=== PATIENT | female | born 1940 | race Caucasian/White ===

== ENCOUNTER 2016-11-24 12:40 | Inpatient (IN) | payer MEDICARE ==
[~2016-11-24] VITALS: Ht 154.9 cm; Wt 72.3 kg
[~2016-11-24 12:40] MED LIST: BIFI4CAP PO; BUSP5TAB3 PO; CHOL100045 PO; CLOB15CR3 TOP; CYAN500 PO; ESTR42.52 VG; FAMO20TA41 PO; LOSA25TA21 PO; NORE-3 PO
[2016-11-24 13:06] VITALS: BP 144/78; PULSE 121; RESP 20; O2SAT 94
--- NOTE | 2016-11-24 14:43 | ED.REPORT ---
HPI-General Illness Date of Service Nov 24, 2016 ED Provider: Dr. Huggins 76 y/o female with a hx of HTN presents to the ED complaining of myalgia, onset today. She also complains of intermittent abdominal pain and 2 episodes of watery diarrhea (without blood) and subjective fever since noon today. Pt denies sore throat, rashes, cough, runny nose, nausea and vomiting. Nursing Notes Stated Complaint: FEVER Chief Complaint: General Complaint Nursing Notes Reviewed: Yes Allergies: Coded Allergies: lidocaine (Verified Allergy, Severe, PALPITAIONS, 11/24/16) nitrofurantoin (Verified Allergy, Intermediate, n/v, 11/24/16) omeprazole (Verified Allergy, Intermediate, heart palpitations, 11/24/16) ciprofloxacin (Verified Allergy, Mild, nausea and diaphoresis, 11/24/16) estradiol (Verified Allergy, Mild, headache, 11/24/16) lisinopril (Verified Allergy, Mild, cough, 11/24/16) Procaine HCl (Verified Allergy, Unknown, 11/24/16) Scheduled Buspirone (Buspirone) 5 Mg Tablet 5 MG PO BID Cholecalciferol (Vitamin D3) (Vitamin D) 1,000 Unit Capsule 1,000 UNIT PO DAILY Lactobacillus Rhamnosus R0011 (Probiotic Digestive Care) 1 Each Capsule 1 EACH PO DAILY Losartan Potassium (Losartan Potassium) 25 Mg Tablet 25 MG PO DAILY Nizatidine (Nizatidine) 150 Mg Capsule 150 MG PO BID General Time Seen by MD: 14:42 Chief Complaint Other (Myalgia) Hx Obtained From: Patient Arrived By: Walk-in Sudden in Onset?: No Onset Occurred: Yesterday Symptom Duration: Since onset Location: : Abdomen Quality: Painful Radiation: : Does not radiate Severity: Current: Mild Severity: Maximum: Mild Recent Healthcare: Recent doctor visit Similar Sx Previous: Yes Past Medical History Past Medical History GERD Arthritis Anxiety Sciatica Reports: Hypertension Reports: Depression Past Surgical History none reported Smoking History Never Smoker Social History Alcohol Use: 1-3 per day Ambulatory Status Independent Review of Systems Full Review of Systems Constitutional: Reports: Fever Ears / Nose / Throat: Denies: Sore throat GI: Reports: Abdominal pain, Diarrhea, Denies: Nausea, Vomiting Musculoskeletal: Reports: Myalgia Skin: Denies Rash Allergy / Immune: Denies: Rhinorrhea Physical Exam Vital Signs Vital Signs Date Time Temp Pulse Resp B/P Pulse Ox O2 Delivery O2 Flow Rate FiO2 11/24/16 17:30 37.8 110 18 140/70 96 Room Air 11/24/16 13:06 39.7 121 20 144/78 94 Initial VS: Reviewed, Vital signs abnormal Head / Eyes: Atraumatic, Normocephalic, PERRL ENT: Mucous membranes moist, Conjunctiva normal, No scleral icterus Neck: Supple, Non-tender, Full range of motion Respiratory: Breath sounds normal, Clear to auscultation, No respiratory distress Back: No CVA tenderness Extremities: Vascular intact, Neuro intact, No swelling, No tenderness Skin: Warm, Dry, No cyanosis Neurologic: Alert, Oriented, Nonfocal Psychiatric: Mood/affect normal, Behavior normal, Normal thought content General/Constitutional: Awake, Alert, Well appearing, Cooperative, Not toxic appearing Cardiovascular: Regular rhythm, Heart sounds NL, No gallop, No murmurs, No rubs Heart Rate / Rhythm: Positive: Tachycardia Abdomen: Atraumatic, Soft, No guarding, No rebound Tenderness/Guarding/Rebound: Positive: Tender LLQ... (Mild) Interpretation & Diagnostics Lab Results Interpretation Result Diagram: 11/24/16 1445 11/24/16 1445 Test 11/24/16 14:20 11/24/16 14:45 11/24/16 15:30 Urine Color Straw (YELLOW) Urine Appearance Hazy (CLEAR,HAZY) Urine pH 5.5 (5.0-8.0) Urine Specific [place] 1.020 (1.003-1.035) Urine Protein Negativemg/dL (NEG,TRACE) Urine Glucose (UA) Negativemg/dL (NEGATIVE) Urine Ketones 15mg/dL (NEGATIVE) Urine Occult Blood Moderate (NEGATIVE) Urine Nitrite Negative (NEGATIVE) Urine Bilirubin Negative (NEGATIVE) Urine Urobilinogen Normalmg/dL (NORMAL) Urine Leukocyte Esterase Small (NEGATIVE) Urine RBC 0-2/hpf (0-2) Urine WBC 11-50/hpf (0-5) Urine Epithelial Cells Occasional/hpf (NONE-MOD) Urine Crystals None seen (NONE SEEN) Urine Bacteria Few/hpf (NONE-FEW) Urine Hyaline Casts None/lpf (NONE) Urine Granular Casts None seen (NONE SEEN) Urine Waxy Casts None seen (NONE SEEN) Urine Red Blood Cell Casts None seen (NONE SEEN) Urine White Blood Cell Casts None seen (NONE SEEN) Urine Mucus None seen (None Seen) Urine Trichomonas None seen (NONE SEEN) Urine Yeast None (NONE SEEN) Urinalysis Comment Transitional epi Urine Culture Reflexed Indicated Hold Urine Received (Received) White Blood Count 9.7th/mm3 (3.8-10.1) Red Blood Count 5.49mil/mm3 (3.90-5.20) Hemoglobin 16.5g/dL (12.0-15.6) Hematocrit 50.5% (35.0-46.0) Mean Corpuscular Volume 92.0fL (81-100) Mean Corpuscular Hemoglobin 30.1pg (27.0-35.0) Mean Corpuscular Hemoglobin Concent 32.7% (32.0-37.0) Red Cell Distribution Width 13.4% (12.3-15.4) Platelet Count 133bil/L (150-400) Neutrophils (%) (Auto) 90.8% (40-74) Lymphocytes (%) (Auto) 3.2% (14-46) Monocytes (%) (Auto) 5.3% (4-12) Eosinophils (%) (Auto) 0% (0-5) Basophils (%) (Auto) 0.3% (0-3) Sodium Level 136mEq/L (134-144) Potassium Level 3.9mEq/L (3.5-5.2) Chloride Level 97mEq/L (97-108) Carbon Dioxide Level 23mmol/L (18-29) Blood Urea Nitrogen 13mg/dL (8-27) Creatinine 0.77mg/dL (0.57-1.00) Estimat Glomerular Filtration Rate 105mL/min (>59) Glucose Level 122mg/dL (60-99) Lactic Acid Level 1.0mmol/L (0.4-2.0) Calcium Level 10.1mg/dL (8.5-10.1) Total Bilirubin 1.5mg/dL (0.0-1.2) Aspartate Amino Transf (AST/SGOT) 16U/L (0-50) Alanine Aminotransferase (ALT/SGPT) 12U/L (0-32) Alkaline Phosphatase 75U/L (25-165) Troponin T < 0.010ug/L (0.0-0.011) Pro-B-Type Natriuretic Peptide 148.6pg/mL (0-738) Total Protein 6.8g/dL (6.4-8.4) Albumin 4.5g/dL (3.4-5.0) Hold Purple Top Tube Received (Received) Hold Blue Top Tube Received (Received) Hold [place] Top Tube Received (Received) ECG Interpretation ECG Interpretation: Sinus tachycardia. Rate 108. Lateral ST depression in V3, V4, V5 and V6 Time: 14:56 Interpreted by: ED physician X-Ray Chest Interpretation Chest Xray Interpretation: IMPRESSION: No acute process. Dictated by: Joey Lagunas M.D. on 11/24/2016 at 15:53 Approved by: Joey Lagunas M.D. on 11/24/2016 at 15:53 View: Portable, AP & lat Interpretation / Wet Read by: Interpret - Radiologist CT Abd / Pelvis Interpretation IMPRESSION: 1. Acute diverticulitis of the descending colon without associated bowel obstruction or abscess. Colonoscopy when the patient's acute symptoms have resolved is recommended to exclude an underlying lesion, if not already recently performed. 2. Fatty infiltration of the wall of the terminal ileum and proximal colon as a nonspecific finding. However, this does raise the suspicion for a chronic inflammatory process such as ulcerative colitis or Crohn's disease. The 3. Moderate-sized hiatal hernia. Dictated by: Usman Raza M.D. on 11/24/2016 at 15:07 Approved by: Usman Raza M.D. on 11/24/2016 at 15:12 Study type: Abdominal CT IV contrast Re-Eval/Medical Decision Med Decision/Clinical Course The patient presents with sudden onset of fever on exam she is left lower quadrant pain. CT confirms diverticulitis. Patient meets sepsis criteria will be admitted to the hospital. She is given Zosyn due to her Cipro allergy. Source of Hx: Old records Time of Eval: 16:34 Re-Evaluation/Progress Note: Pt rechecked. Discussed lab and imaging results. Informed pt of need for admission. Pt understands and agrees with the plan for admission. All questions addressed. Consultation : Referral / Consult Name: Tima Mcdaniel MD Consulted With: Hospitalist Call Returned at: 16:50 Concrete Layer: Will see patient, Agrees with eval, Agrees with plan, Accepts admit Counseled Regarding: Diagnosis, Lab results, Need for admission Discharge & Departure Primary Impression: Diverticulitis Diverticulitis site: unspecified part of intestinal tract Diverticulitis bleeding: without bleeding Diverticulitis complication: without perforation or abscess Qualified Code: K57.92 - Diverticulitis of intestine, part unspecified, without perforation or abscess without bleeding Additional Impressions: UTI (urinary tract infection) Urinary tract infection type: acute cystitis Hematuria presence: without hematuria Qualified Code: N30.00 - Acute cystitis without hematuria Sepsis Sepsis type: sepsis due to unspecified organism Qualified Code: A41.9 - Sepsis, unspecified organism Disposition: ADMITTED TO HOSPITAL Discharge Condition All VS Reviewed: Yes Condition: Stable Referrals: Sabine Phelps PA-C (PCP) Scribe Attestation Portions of this note were transcribed by Dex Juarez and Keke Buchanan. I, , personally performed the history, physical exam and medical decision-making;I reviewed and confirmed the accuracy of the information in the transcribed note. Signed by Augusta Thomas. 11/24/16 17:03 copies to: Sabine Phelps PA-C, Jena M MD Nov 24, 2016 14:43 Dex Juarez Nov 24, 2016 15:02
[2016-11-24] MEDS ORDERED: 0.9% Sodium Chloride 500 ML IV ONE (14:45)
[2016-11-24 15:00] LABS: BASOPHILS % (AUTO) 0.3 % (0-3); EOSINOPHILS % (AUTO) 0 % (0-5); MONOCYTES % (AUTO) 5.3 % (4-12); Mean Corpuscular Hemoglobin 30.1 pg (27.0-35.0); NEUTROPHILS % (AUTO) 90.8 % (40-74); Platelet Count 133 bil/L (150-400)
[2016-11-24 15:27] LABS: TROPONIN T < 0.010 ug/L (0.0-0.011)
[2016-11-24 15:36] LABS: APPEARANCE,URINE HAZY (CLEAR,HAZY); COLOR,URINE STRAW (YELLOW); OCCULT BLOOD,URINE MODERATE (NEGATIVE); PH,URINE 5.5 (5.0-8.0); UROBILINOGEN,URINE NORMAL (NORMAL)
--- NOTE | 2016-11-24 15:54 | DRSVH ---
PROCEDURE: X-RAY CHEST, TWO VIEWS ([id number]) INDICATIONS: FEVER TECHNIQUE: 2 views of the chest were acquired. COMPARISON: [facility], CR, CHEST 2VW, 09/02/2014, 13:07. [facility] [place], CR, CHEST 2VW, 08/14/2011, 10:34. FINDINGS: Surgical changes and devices: None. Lungs and pleura: No pleural effusions or pneumothorax. Lungs are clear. Mediastinum: Mediastinal contours are normal. Heart size is normal. Bones and chest wall: No suspicious bony abnormalities. Soft tissues appear unremarkable. IMPRESSION: No acute process. Dictated by: Joey Lagunas M.D. on 11/24/2016 at 15:53 Approved by: Joey Lagunas M.D. on 11/24/2016 at 15:53
--- NOTE | 2016-11-24 16:14 | DRSVH ---
PROCEDURE: CT ABDOMEN AND PELVIS WITH CONTRAST ([id number]) INDICATIONS: LLQ pain and fever TECHNIQUE: After the administration of oral and intravenous contrast, 5 mm thick sections acquired from the diap hragms to the symphysis. 5 mm thick coronal and sagittal reformats were performed. For radiation do se reduction, the following was used: automated exposure control, adjustment of mA and/or kV accordi ng to patient size. COMPARISON: None. FINDINGS: Image quality: Diagnostic ABDOMEN: Lung bases: Lung bases are clear. Heart size is normal. Solid organs: Liver and spleen are normal in size and enhancement. Gallbladder is not enlarged. Bi liary system is non-dilated. Pancreas enhances normally. No adrenal nodules. Kidneys are normal in size and enhancement, without hydronephrosis. No solid renal lesions are evident. Peritoneum and bowel: There is a small hiatal hernia. Otherwise, the stomach, duodenum and remainder of the small bowel loops are nondilated. There is nonspecific fatty infiltration involving the wall of the terminal ileum, cecum, and ascending colon. Extensive distal colonic diverticulosis is prese nt with moderate focal wall thickening noted along the descending aspect of the distal colon with mod erate inflammatory changes evident within the adjacent mesentery. Small amount of fluid is seen with in the left paracolic gutter. There are no abscesses. There is no free air. Nodes and vessels: No retroperitoneal or mesenteric adenopathy. Aorta and inferior vena cava are no rmal in caliber. There is mild aortic atherosclerosis. Bones: Moderate degenerative changes are noted involving the lumbar spine with mild levoscoliosis. N o suspicious osseous lesions or acute fractures are evident. PELVIS: Genitourinary: Bladder wall thickness is normal. The uterus and ovaries are not enlarged. Miscellaneous: No inguinal hernias or adenopathy. No loculated fluid collections or free air is dino dent. There is a trace amount of free fluid within the pelvis. Bones: No suspicious bony lesions. No acute pelvic fractures are evident. There are mild degenerat darnell changes of the sacroiliac joints. IMPRESSION: 1. Acute diverticulitis of the descending colon without associated bowel obstruction or abscess. Co lonoscopy when the patient's acute symptoms have resolved is recommended to exclude an underlying les ion, if not already recently performed. 2. Fatty infiltration of the wall of the terminal ileum and proximal colon as a nonspecific finding. However, this does raise the suspicion for a chronic inflammatory process such as ulcerative coliti s or Crohn's disease. The 3. Moderate-sized hiatal hernia. Dictated by: Usman Raza M.D. on 11/24/2016 at 15:07 Approved by: Usman Raza M.D. on 11/24/2016 at 15:12
[2016-11-24] MEDS ORDERED: Piperacillin-Tazo 3.375 Gm Inj 3.375 GM in Dextrose 5% Minibag Plus 50 ML IV ONE (16:35)
[2016-11-24] MEDS ORDERED: Polyethylene Glycol (PEG) 17 Gm Powder PO PRN (17:15)
[2016-11-24] MEDS ORDERED: Alum-Mag Hydrox-Simeth 30 mL Suspension PO PRN (17:15)
[2016-11-24] MEDS ORDERED: [UNRECOGNIZED DRUG - CODE] PO (17:19)
[2016-11-24] MEDS ORDERED: LACT1CAP64 PO (17:19)
[2016-11-24] MEDS: 0.9% Sodium Chloride 1,000 ML IV SCH (17:29)
[2016-11-24 17:30] VITALS: BP 140/70; PULSE 110; RESP 18; O2SAT 96
--- NOTE | 2016-11-24 17:34 | PCM.HPMED ---
Subjective Date of Service Nov 24, 2016 Primary Provider: Admitting Physician: Primary Care Physician: Sabine Phelps PA-C Attending Physician: Admit Status: From the Emergency Department, Full Admit, Admit to Blue Team Chief Complaint: Fever and chills/one day Diarrhea/one day History of Present Illness: Jing is a pleasant 76-year-old lady with no significant past medical history who presented to emergency room due to sudden onset fever, chills, watery diarrhea of one day. She states she started to have episodes of watery diarrhea this morning. She also noted that she is having malaise, chills and fever which prompted ED visit. She has nausea but no vomiting. She also noted she has LLQ dull aching abdominal pain after she came to the emergency room. Last colonoscopy was 5 years ago and was told to have diverticuli. ED course: Febrile temp 39.7, HR 121, BP 144/78, hemoglobin 16.5, WBC 9.7, platelets 133, urinalysis with pyuria CT abdomen shows Acute diverticulitis of the descending colon without associated bowel obstruction or abscess IV fluids started, Zosyn started and admission requested Review of Systems: A comprehensive review of systems performed, pertinent positives and negatives included in history of present illness Allergies Coded Allergies: lidocaine (Verified Allergy, Severe, PALPITAIONS, 11/24/16) nitrofurantoin (Verified Allergy, Intermediate, n/v, 11/24/16) omeprazole (Verified Allergy, Intermediate, heart palpitations, 11/24/16) ciprofloxacin (Verified Allergy, Mild, nausea and diaphoresis, 11/24/16) estradiol (Verified Allergy, Mild, headache, 11/24/16) lisinopril (Verified Allergy, Mild, cough, 11/24/16) Procaine HCl (Verified Allergy, Unknown, 11/24/16) Home Medications Buspirone (Buspirone) 5 Mg Tablet 5 MG PO BID Famotidine (Pepcid AC) 20 Mg Tablet 20 MG PO BID Losartan 25 mg daily PMH GERD Arthritis Sciatica Hypertension Anxiety/Depression Surgical History None Family History Reviewed and unremarkable Social History Hx Alcohol Use: Yes (14 PER WEEK) Hx Substance Use: No Smoking Status: Never Smoker Exam Vital Signs Vital Sign - Last Date Time Temp Pulse Resp B/P Pulse Ox O2 Delivery O2 Flow Rate FiO2 11/24/16 13:06 39.7 121 20 144/78 94 Exam Gen. patient is lying comfortably in hospital bed, acutely sick looking HEENT: Head is normocephalic atraumatic, Pupils equal and reactive, extraocular movements intact, Lungs clear to auscultation bilaterally Heart regular rate and rhythm without murmurs gallops or rubs Abdomen LLQ direct and rebound tenderness. Active bowel sounds Extremities pulses are present dorsalis pedis posterior tibialis and radial. tSkin is warm and dry there are no rashes, Psych alert and oriented to person place and time Neuro cranial nerves II through XII are grossly intact Lymph: There is no lymphadenopathy appreciated in the cervical supra infraclavicular regions : no wiseman Lab and Diagnostics Result Diagram: 11/24/16 1445 11/24/16 1445 X-Rays, CTs and MRIs PROCEDURE: CT ABDOMEN AND PELVIS WITH CONTRAST ([id number]) INDICATIONS: LLQ pain and fever IMPRESSION: 1. Acute diverticulitis of the descending colon without associated bowel obstruction or abscess. Colonoscopy when the patient's acute symptoms have resolved is recommended to exclude an underlying lesion, if not already recently performed. 2. Fatty infiltration of the wall of the terminal ileum and proximal colon as a nonspecific finding. However, this does raise the suspicion for a chronic inflammatory process such as ulcerative colitis or Crohn's disease. The 3. Moderate-sized hiatal hernia. Dictated by: Usman Raza M.D. on 11/24/2016 at 15:07 Assessment & Plan Jing is a pleasant 76-year-old lady with no significant past medical history who presented to emergency room due to sudden onset fever, chills, watery diarrhea of one # Acute sepsis ,poa -due to diverticulitis and UTI -temp 39.7, HR 121 -Blood and urine culture pending -NS bolus then 100ml/h -antibiotic Zosyn started in ED due to ciprofloxacin allergy, continue with that # Acute diverticulitis,poa -CT abdomen consistent with diverticulitis -npo tonight, will start clears in the morning -Management as above -Will need colonoscopy in the next few month #Acute UTI,poa -Urinalysis with pyuria, urine culture sent -Continue Zosyn #Anxiety/depression -Continue home medication # Hypertension -BP okay, hold losartan for now due to sepsis ppx -lovenox Patient admitted under inpatient status with expected length of stay > 2 midnights for severity of present symptoms, complexities of treatment plan and risk for adverse events full code , verified with patient copies to: Sabine Phelps PA-C, Melaku MD Nov 24, 2016 17:34
[2016-11-24] MEDS ORDERED: 0.9% Sodium Chloride 1,000 ML IV ONE (17:40)
[2016-11-24 18:07] VITALS: PULSE 99
[2016-11-24 18:12] VITALS: BP 125/72; PULSE 98; RESP 20; O2SAT 94
[2016-11-24] MEDS: BusPIRone 15 mg Dividose Tablet PO SCH (20:00)
[2016-11-24 20:20] VITALS: BP 123/75; PULSE 96; RESP 22; O2SAT 94
[2016-11-24 20:51] VITALS: PULSE 84
[2016-11-25] VITALS (8 sets, daily range): BP systolic 135–149; BP diastolic 73–77; PULSE 73–92; RESP 18–24; O2SAT 92–95
[2016-11-25] MEDS: Piperacillin-Tazo 3.375 Gm Inj 3.375 GM in Dextrose 5% Minibag Plus 50 ML IV SCH ×3 (00:12→17:29)
[2016-11-25] MEDS: Ondansetron 2 mg/mL 2 mL Inj IVPUSH PRN ×2 (00:26→22:18)
[2016-11-25] MEDS: 0.9% Sodium Chloride 1,000 ML IV SCH ×3 (04:35→14:35)
[2016-11-25 06:04] LABS: BASOPHILS % (AUTO) 0.3 % (0-3); EOSINOPHILS % (AUTO) 0.1 % (0-5); MONOCYTES % (AUTO) 4.3 % (4-12); Mean Corpuscular Hemoglobin 30.6 pg (27.0-35.0); Mean Corpuscular Volume 93.2 fL (81-100); NEUTROPHILS % (AUTO) 87.8 % (40-74); Platelet Count 115 bil/L (150-400)
[2016-11-25 06:32] LABS: Magnesium 1.8 mg/dL (1.6-2.6)
[2016-11-25] MEDS: BusPIRone 15 mg Dividose Tablet PO SCH ×2 (10:26→22:18)
--- NOTE | 2016-11-25 16:10 | PCM.PNMED ---
Subjective Date of Service Nov 25, 2016 Subjective Tolerating clear liquids fairly well. Still some LLQ abd pain. Exam Vital Signs Vital Sign - Last Date Time Temp Pulse Resp B/P Pulse Ox O2 Delivery O2 Flow Rate FiO2 11/25/16 15:25 37.3 82 20 146/76 92 Room Air Intake and Output 11/24/16 11/24/16 11/25/16 Cumulative From/Thru 15:00 23:00 07:00 11/24/16 13:06 - 11/25/16 06:33 Intake Total 1970 ml 1970 ml Output Total 1150 ml 1150 ml Balance 820 ml 820 ml Intake Oral 0 ml 0 ml IV Total 1970 ml 1970 ml Output Urine Total 1150 ml 1150 ml # Voids 3 3 # Bowel Movements 0 0 Exam General: Alert and oriented, no acute distress Heart: Regular Lungs: Clear Abdomen: Soft, BT active, mild pain to LLQ percussion, more pain to mod palp Extremities: No pedal edema IVs and Medications Medications Reviewed: Medications were reviewed in detail Lab and Diagnostics Result Diagram: 11/25/16 0555 11/25/16 0555 X-Rays, CTs and MRIs PROCEDURE: CT ABDOMEN AND PELVIS WITH CONTRAST ([id number]) INDICATIONS: LLQ pain and fever IMPRESSION: 1. Acute diverticulitis of the descending colon without associated bowel obstruction or abscess. Colonoscopy when the patient's acute symptoms have resolved is recommended to exclude an underlying lesion, if not already recently performed. 2. Fatty infiltration of the wall of the terminal ileum and proximal colon as a nonspecific finding. However, this does raise the suspicion for a chronic inflammatory process such as ulcerative colitis or Crohn's disease. The 3. Moderate-sized hiatal hernia. Dictated by: Usman Raza M.D. on 11/24/2016 at 15:07 Assessment & Plan Jing is a pleasant 76-year-old lady with no significant past medical history who presented to emergency room due to sudden onset fever, chills, watery diarrhea of one # Acute sepsis ,poa - with Gram negative bacteremia (both sets with GNB), probably due to diverticulitis (seen on CT) -initally temp 39.7, HR 121 - morning after admit afebrile and HR 88 -NS bolus then 100ml/h -initially felt due to diverticulitis and UTI as UA has 11-50 WBC but urine culture NGSF -antibiotic Zosyn started in ED due to ciprofloxacin allergy, continued # Acute diverticulitis,poa -CT abdomen consistent with diverticulitis -npo tonight, started clear liquids today -Management as above -Will need colonoscopy in the next few month #Acute pyuria, possible UTI,poa - As above #Anxiety/depression -Continue home medication # Hypertension - losartan held initially due to sepsis, systolic blood pressure now 140s, will resume in the morning ppx -lovenox Patient admitted under inpatient status with expected length of stay > 2 midnights for severity of present symptoms, complexities of treatment plan and risk for adverse events full code , verified with patient VTE Mechanical Devices: Intermittant Pneumatic CD Irena Mao MD Nov 25, 2016 16:10
[2016-11-26] MEDS: Piperacillin-Tazo 3.375 Gm Inj 3.375 GM in Dextrose 5% Minibag Plus 50 ML IV SCH ×2 (01:47→08:47)
[2016-11-26 05:50] VITALS: BP 131/69; PULSE 66; RESP 18; O2SAT 94
[2016-11-26] MEDS: BusPIRone 15 mg Dividose Tablet PO SCH (08:46)
[2016-11-26] MEDS: 0.9% Sodium Chloride 1,000 ML IV SCH (11:04)
[2016-11-26] MEDS ORDERED: AMOX-366 PO (14:32)
--- NOTE | 2016-11-26 14:36 | PCM.DIMED ---
Discharge Instructions Date of Service Nov 26, 2016 Dates of Hospitalization Nov 24, 2016 at 17:32 Discharge Diagnosis Discharge Diagnosis Sepsis with gram-negative bacteremia Acute diverticulitis Acute pyuria secondary to UTI Anxiety/depression Hypertension Diet Heart Healthy Activity No restrictions Call your provider Fever or Chills, Shortness of breath, Vomitting, Excessive diarrhea Patient Instructions Please continue to eat and drink regularly to stay hydrated. Mid-level Provider (F9): Sabine Phelps PA-C Follow-up with Mid-level in: 1 week (if an appointment has not been made please call to schedule an appointment) Paige Woods DO Nov 26, 2016 14:36
--- NOTE | 2016-11-26 14:42 | PCM.DC.MED ---
Discharge Summary Date of Service Nov 26, 2016 Dates of Hospitalization Date of Hospital Admission Nov 24, 2016 at 17:32 Date of Discharge: Nov 26, 2016 Providers: Admitting Physician: Tima Mcdaniel MD Primary Care Physician: Sabine Phelps PA-C Attending Physician: Tima Mcdaniel MD Diagnosis at Time of Discharge Diagnosis at Time of Discharge Sepsis with gram-negative bacteremia Acute diverticulitis Acute pyuria secondary to UTI Anxiety/depression Hypertension Procedures XRay, CTs & MRIs PROCEDURE: CT ABDOMEN AND PELVIS WITH CONTRAST ([id number]) INDICATIONS: LLQ pain and fever IMPRESSION: 1. Acute diverticulitis of the descending colon without associated bowel obstruction or abscess. Colonoscopy when the patient's acute symptoms have resolved is recommended to exclude an underlying lesion, if not already recently performed. 2. Fatty infiltration of the wall of the terminal ileum and proximal colon as a nonspecific finding. However, this does raise the suspicion for a chronic inflammatory process such as ulcerative colitis or Crohn's disease. The 3. Moderate-sized hiatal hernia. Dictated by: Usman Raza M.D. on 11/24/2016 at 15:07 Brief History Jing is a pleasant 76-year-old lady with no significant past medical history who presented to emergency room due to sudden onset fever, chills, watery diarrhea of one day. She states she started to have episodes of watery diarrhea this morning. She also noted that she is having malaise, chills and fever which prompted ED visit. She has nausea but no vomiting. She also noted she has LLQ dull aching abdominal pain after she came to the emergency room. Last colonoscopy was 5 years ago and was told to have diverticuli. ED course: Febrile temp 39.7, HR 121, BP 144/78, hemoglobin 16.5, WBC 9.7, platelets 133, urinalysis with pyuria CT abdomen shows Acute diverticulitis of the descending colon without associated bowel obstruction or abscess IV fluids started, Zosyn started and admission requested Hospital Course Jing is a pleasant 76-year-old lady with no significant past medical history who presented to emergency room due to sudden onset fever, chills, watery diarrhea of one Patient was admitted for sepsis secondary to gram-negative bacteremia from acute diverticulitis and UTI. The patient currently responded well to antibiotic treatment with Zosyn. The patient's labs have all returned to normal and she has remained afebrile for the last 48 hours. The patient will be going home with a 10 day course of Augmentin patient did have positive blood cultures. The patient should follow-up within 1 week with her primary care provider. The patient is currently tolerating a soft diet with no nausea vomiting or diarrhea. Acute sepsis ,poa - with Gram negative bacteremia (both sets with GNB), probably due to diverticulitis (seen on CT) -initally temp 39.7, HR 121 - morning after admit afebrile and HR 88 -NS bolus then 100ml/h -initially felt due to diverticulitis and UTI as UA has 11-50 WBC but urine culture NGSF -antibiotic Zosyn started in ED due to ciprofloxacin allergy, continued Acute diverticulitis,poa -CT abdomen consistent with diverticulitis -npo tonight, started clear liquids today -Management as above -Will need colonoscopy in the next few month Acute pyuria, possible UTI,poa - As above Anxiety/depression -Continue home medication Hypertension - losartan held initially due to sepsis, systolic blood pressure now 140s, will resume in the morning ppx -lovenox Exam Vital Signs (Last) Date Time Temp Pulse Resp B/P Pulse Ox O2 Delivery O2 Flow Rate FiO2 11/26/16 05:50 36.6 66 18 131/69 94 Room Air Exam Physical Exam: GEN: Patient was awake, alert, responding appropriately to questions HEENT: Pupils equal round and reactive to light, extraocular eye muscles intact , Neck soft supple, trachea midline, nomocephalic/atraumatic CV: +S1/S2, regular rate and rhythm, no murmurs auscultated Respiratory: CTAB, no wheezes, rales, rhonchi GI: +bowel sounds x4, soft, compressible, mild left lower quadrant tenderness to palpation EXT: no clubbing, cyanosis, edema Neuro: Cranial nerves II-XII grossly intact Psych: mood and affect were appropriate Test 11/24/16 14:20 11/24/16 14:45 11/24/16 15:30 11/25/16 05:55 Urine Color Straw (YELLOW) Urine Appearance Hazy (CLEAR,HAZY) Urine pH 5.5 (5.0-8.0) Urine Specific [place] 1.020 (1.003-1.035) Urine Protein Negativemg/dL (NEG,TRACE) Urine Glucose (UA) Negativemg/dL (NEGATIVE) Urine Ketones 15mg/dL (NEGATIVE) Urine Occult Blood Moderate (NEGATIVE) Urine Nitrite Negative (NEGATIVE) Urine Bilirubin Negative (NEGATIVE) Urine Urobilinogen Normalmg/dL (NORMAL) Urine Leukocyte Esterase Small (NEGATIVE) Urine RBC 0-2/hpf (0-2) Urine WBC 11-50/hpf (0-5) Urine Epithelial Cells Occasional/hpf (NONE-MOD) Urine Crystals None seen (NONE SEEN) Urine Bacteria Few/hpf (NONE-FEW) Urine Hyaline Casts None/lpf (NONE) Urine Granular Casts None seen (NONE SEEN) Urine Waxy Casts None seen (NONE SEEN) Urine Red Blood Cell Casts None seen (NONE SEEN) Urine White Blood Cell Casts None seen (NONE SEEN) Urine Mucus None seen (None Seen) Urine Trichomonas None seen (NONE SEEN) Urine Yeast None (NONE SEEN) Urinalysis Comment Transitional epi Urine Culture Reflexed Indicated Hold Urine Received (Received) Lactic Acid Level 1.0mmol/L (0.4-2.0) Troponin T < 0.010ug/L (0.0-0.011) Pro-B-Type Natriuretic Peptide 148.6pg/mL (0-738) Hold Purple Top Tube Received (Received) Hold Blue Top Tube Received (Received) Hold [place] Top Tube Received (Received) White Blood Count 7.2th/mm3 (3.8-10.1) Red Blood Count 4.74mil/mm3 (3.90-5.20) Hemoglobin 14.5g/dL (12.0-15.6) Hematocrit 44.2% (35.0-46.0) Mean Corpuscular Volume 93.2fL (81-100) Mean Corpuscular Hemoglobin 30.6pg (27.0-35.0) Mean Corpuscular Hemoglobin Concent 32.8% (32.0-37.0) Red Cell Distribution Width 13.5% (12.3-15.4) Platelet Count 115bil/L (150-400) Neutrophils (%) (Auto) 87.8% (40-74) Lymphocytes (%) (Auto) 7.4% (14-46) Monocytes (%) (Auto) 4.3% (4-12) Eosinophils (%) (Auto) 0.1% (0-5) Basophils (%) (Auto) 0.3% (0-3) Sodium Level 141mEq/L (134-144) Potassium Level 3.9mEq/L (3.5-5.2) Chloride Level 104mEq/L (97-108) Carbon Dioxide Level 23mmol/L (18-29) Blood Urea Nitrogen 10mg/dL (8-27) Creatinine 0.75mg/dL (0.57-1.00) Estimat Glomerular Filtration Rate 108mL/min (>59) Glucose Level 117mg/dL (60-99) Calcium Level 8.5mg/dL (8.5-10.1) Magnesium Level 1.8mg/dL (1.6-2.6) Total Bilirubin 1.2mg/dL (0.0-1.2) Aspartate Amino Transf (AST/SGOT) 13U/L (0-50) Alanine Aminotransferase (ALT/SGPT) 9U/L (0-32) Alkaline Phosphatase 57U/L (25-165) Total Protein 5.3g/dL (6.4-8.4) Albumin 3.6g/dL (3.4-5.0) Discharge Medications Discharge Medications Amoxicillin/Clav K 875-125 mg (Augmentin 875-125 mg) 1 Each Tablet 1 TABLET PO BID Prescribed by: TRISTA GOODWIN DO Buspirone (Buspirone) 5 Mg Tablet 5 MG PO BID (Reported) Cholecalciferol (Vitamin D3) (Vitamin D) 1,000 Unit Capsule 1,000 UNIT PO DAILY (Reported) Lactobacillus Rhamnosus R0011 (Probiotic Digestive Care) 1 Each Capsule 1 EACH PO DAILY (Reported) Losartan Potassium (Losartan Potassium) 25 Mg Tablet 25 MG PO DAILY (Reported) Nizatidine (Nizatidine) 150 Mg Capsule 150 MG PO BID (Reported) Followup Plan Discharge Diet: Heart Healthy Discharge Activity: No restrictions Patient Instructions Please continue to eat and drink regularly to stay hydrated. Mid-level Provider: Sabine Phelps PA-C Follow-up with Mid-level in: 1 week (if an appointment has not been made please call to schedule an appointment) copies to: Sabine Phelps PA-C, Precious L DO Nov 26, 2016 14:42
[2016-11-26 15:01] VITALS: BP 149/78; PULSE 82; RESP 16; O2SAT 95
== END 2016-11-26 15:43 | disposition home or self-care (01) | DRG 872 ==
LOC: SED 12:40 → OSC 17:32
PROVIDERS: ADMIT Internal Medicine; ATTEND Internal Medicine
DX: A41.51 Sepsis due to Escherichia coli [E. coli] (principal); K57.32 Diverticulitis of large intestine without perforation or abscess without bleeding; N39.0 Urinary tract infection, site not specified; A41.89 Other specified sepsis; K21.9 Gastro-esophageal reflux disease without esophagitis; I10 Essential (primary) hypertension; F32.9 Major depressive disorder, single episode, unspecified; F41.9 Anxiety disorder, unspecified; Z88.1 Allergy status to other antibiotic agents

== ENCOUNTER 2016-12-03 10:30 | Emergency (ER) | payer MEDICARE ==
[~2016-12-03] VITALS: Ht 154.9 cm; Wt 72.3 kg
[~2016-12-03 10:30] MED LIST changes: +AMOX-366 PO; +LACT1CAP64 PO; +[UNRECOGNIZED DRUG - CODE] PO
[2016-12-03 10:46] VITALS: BP 154/94; PULSE 88; RESP 20; O2SAT 97
--- NOTE | 2016-12-03 11:30 | ED.REPORT ---
HPI-Abd Pain F 40 and Over Date of Service December 03, 2016 ED Provider: Celeste Sutherland History of Present Illness: feeling clammy and diarrhea continues. abd pain started today comes and goes pain is very mild. Still on antibiotic, augmentin. Mikael is primary care. saw her on . cough present for a week, started in the hospital. Nursing Notes Stated Complaint: DIVERTICULITIS Chief Complaint: Female Abdominal Pain Nursing Notes Reviewed: Yes Allergies: Coded Allergies: lidocaine (Verified Allergy, Severe, PALPITAIONS, 12/03/16) nitrofurantoin (Verified Allergy, Intermediate, n/v, 12/03/16) omeprazole (Verified Allergy, Intermediate, heart palpitations, 12/03/16) ciprofloxacin (Verified Allergy, Mild, nausea and diaphoresis, 12/03/16) estradiol (Verified Allergy, Mild, headache, 12/03/16) lisinopril (Verified Allergy, Mild, cough, 12/03/16) Procaine HCl (Verified Allergy, Unknown, 12/03/16) Scheduled Amoxicillin/Clav K 875-125 mg (Augmentin 875-125 mg) 1 Each Tablet 1 TABLET PO BID Amoxicillin/Clav K 875-125 mg (Augmentin 875-125 mg) 1 Each Tablet 1 TABLET PO BID Buspirone (Buspirone) 5 Mg Tablet 5 MG PO BID Cholecalciferol (Vitamin D3) (Vitamin D) 1,000 Unit Capsule 1,000 UNIT PO DAILY Lactobacillus Rhamnosus R0011 (Probiotic Digestive Care) 1 Each Capsule 1 EACH PO DAILY Losartan Potassium (Losartan Potassium) 25 Mg Tablet 25 MG PO DAILY Nizatidine (Nizatidine) 150 Mg Capsule 150 MG PO BID General Time Seen by MD: 11:27 Chief Complaint Other (cramping feeling weak) Hx Obtained From: Patient Sudden in Onset?: No Past Medical History Past Medical History GERD Arthritis Anxiety Sciatica divertilitis Reports: Hypertension Reports: Depression Past Surgical History none reported Smoking History Never Smoker Social History Alcohol Use: 1-3 per day Drug Use: Denies drug use Other Social History: Occupation lives with 1 story house 12/03/2016 Ambulatory Status Independent Review of Systems Basic Review of Systems Eyes: Vision NL, No discharge Skin: No bruising, No rash, No itch Psychiatric: Normal thought content Physical Exam Vital Signs Vital Signs (First) Date Time Temp Pulse Resp B/P Pulse Ox O2 Delivery O2 Flow Rate FiO2 12/03/16 10:46 36.7 88 20 154/94 97 12/03/16 13:05 Room Air Initial VS: Reviewed, Vital signs normal Head / Eyes: Atraumatic, Normocephalic, PERRL ENT: Mucous membranes moist, Conjunctiva normal, No scleral icterus Neck: Supple, Non-tender, Full range of motion Lymphatic: No lymphadenopathy Extremities: Vascular intact, Neuro intact, No swelling, No tenderness Skin: Warm, Dry, No cyanosis Neurologic: Alert, Oriented, Nonfocal Psychiatric: Mood/affect normal, Behavior normal, Normal thought content General/Constitutional: Awake, Alert, No acute distress, Well appearing, Well developed, Well hydrated, Well nourished, Cooperative, Not toxic appearing Respiratory / Chest: Atraumatic, Breath sounds NL, Breath sounds = bilat, No respiratory distress, No rales, No rhonchi, No wheezing, No retractions, No stridor, No chest tenderness, No chest wall deformity, No crepitus Cardiovascular: Heart rate NL, Regular rhythm, Heart sounds NL, No gallop, No murmurs, No rubs, Cap refill not delayed, Peripheral circulation NL Abdomen: Atraumatic, Soft, Non-tender, McBurney's non-tender, No guarding, No rebound, BS normoactive, No distention Back: Atraumatic, Inspection NL, Full range of motion Interpretation & Diagnostics Lab Results Interpretation Result Diagram: 12/03/16 1145 12/03/16 1145 Test 12/03/16 11:45 12/03/16 14:53 White Blood Count 5.4th/mm3 (3.8-10.1) Red Blood Count 5.26mil/mm3 (3.90-5.20) Hemoglobin 15.8g/dL (12.0-15.6) Hematocrit 47.5% (35.0-46.0) Mean Corpuscular Volume 90.3fL (81-100) Mean Corpuscular Hemoglobin 30.0pg (27.0-35.0) Mean Corpuscular Hemoglobin Concent 33.3% (32.0-37.0) Red Cell Distribution Width 13.1% (12.3-15.4) Platelet Count 189bil/L (150-400) Neutrophils (%) (Auto) 68.6% (40-74) Lymphocytes (%) (Auto) 18.0% (14-46) Monocytes (%) (Auto) 11.8% (4-12) Eosinophils (%) (Auto) 0.7% (0-5) Basophils (%) (Auto) 0.7% (0-3) Sodium Level 139mEq/L (134-144) Potassium Level 3.4mEq/L (3.5-5.2) Chloride Level 100mEq/L (97-108) Carbon Dioxide Level 24mmol/L (18-29) Blood Urea Nitrogen 5mg/dL (8-27) Creatinine 0.59mg/dL (0.57-1.00) Estimat Glomerular Filtration Rate 143mL/min (>59) Glucose Level 110mg/dL (60-99) Lactic Acid Level 0.9mmol/L (0.4-2.0) Calcium Level 9.0mg/dL (8.5-10.1) Magnesium Level 2.1mg/dL (1.6-2.6) Total Bilirubin 0.6mg/dL (0.0-1.2) Aspartate Amino Transf (AST/SGOT) 24U/L (0-50) Alanine Aminotransferase (ALT/SGPT) 24U/L (0-32) Alkaline Phosphatase 61U/L (25-165) Troponin T 0.010ug/L (0.0-0.011) Total Protein 6.9g/dL (6.4-8.4) Albumin 3.7g/dL (3.4-5.0) Urine Color Yellow (YELLOW) Urine Appearance Clear (CLEAR,HAZY) Urine pH 6.0 (5.0-8.0) Urine Specific [place] 1.005 (1.003-1.035) Urine Protein Negativemg/dL (NEG,TRACE) Urine Glucose (UA) Negativemg/dL (NEGATIVE) Urine Ketones 15mg/dL (NEGATIVE) Urine Occult Blood Trace (NEGATIVE) Urine Nitrite Negative (NEGATIVE) Urine Bilirubin Negative (NEGATIVE) Urine Urobilinogen Normalmg/dL (NORMAL) Urine Leukocyte Esterase Negative (NEGATIVE) Urine RBC 0-2/hpf (0-2) Urine WBC 0-5/hpf (0-5) Urine Epithelial Cells Few/hpf (NONE-MOD) Urine Crystals None seen (NONE SEEN) Urine Bacteria None/hpf (NONE-FEW) Urine Hyaline Casts None/lpf (NONE) Urine Granular Casts None seen (NONE SEEN) Urine Waxy Casts None seen (NONE SEEN) Urine Red Blood Cell Casts None seen (NONE SEEN) Urine White Blood Cell Casts None seen (NONE SEEN) Urine Mucus None seen (None Seen) Urine Trichomonas None seen (NONE SEEN) Urine Yeast None (NONE SEEN) Urinalysis Comment None Urine Culture Reflexed Not indicated Lab Results Interpretation: urine is normal CT Abd / Pelvis Interpretation PROCEDURE: CT ABDOMEN AND PELVIS WITH CONTRAST ([id number]) INDICATIONS: abd pain ?abscess, diverticulitis TECHNIQUE: After the administration of intravenous contrast, 5 mm thick sections acquired from the diaphragm to the symphysis. 5 mm coronal and sagittal reformats were acquired. For radiation dose reduction, the following was used: automated exposure control, adjustment of mA and/or kV according to patient size. COMPARISON: [facility], CT, CT ABD PELVIS W CON, 11/24/2016, 15:57. FINDINGS: Image quality: Excellent. ABDOMEN: Lung bases: Mild patchy opacity within the right middle lobe. Heart size is normal. Solid organs: Liver and spleen are normal in size and enhancement. Gallbladder is within normal limits. Biliary system is non dilated. Pancreas enhances normally. No adrenal nodules. Kidneys demonstrate normal size and enhancement, without hydronephrosis. Peritoneum and bowel: No change in small hiatal hernia. Stomach and small bowel are within normal limits. Appendix is normal. Colon is nondistended. Diverticulosis of the descending and sigmoid colon. Mild thickening of the distal descending colon and mild pericolonic fat stranding. Mild thickening of the mid/distal sigmoid colon with mild pericolonic fat stranding. No pericolonic abscess. No free fluid or air. Nodes and vessels: No retroperitoneal or mesenteric adenopathy by size criteria. Aorta and inferior vena cava are normal in size. Miscellaneous: No ventral hernias. PELVIS: Genitourinary: Bladder wall thickness is normal. Miscellaneous: No inguinal hernias or adenopathy. Bones: No suspicious bony lesions. No vertebral body compression fractures. IMPRESSION: 1. Mild right middle lobe pneumonia. 2. Mild diverticulitis of the distal and mid sigmoid colon. 3. Normal appendix. 4. Small hiatal hernia. Re-Eval/Medical Decision Med Decision/Clinical Course 76 year old female presents for evualation after discharge 1 week ago from the hospital for diverticulitis. Paitnet with vague symptoms. labs are normal, CT is normal, urine is normal. Discussed with Dean Ferguson at to dispostion, re high risk with recent hospilations and bacteremia Discharge & Departure Primary Impression: Diverticulitis Diverticulitis site: large intestine Diverticulitis bleeding: without bleeding Diverticulitis complication: without perforation or abscess Qualified Code: K57.32 - Diverticulitis of large intestine without perforation or abscess without bleeding Additional Impression: Pneumonia Pneumonia type: due to unspecified organism Laterality: right Lung location : middle lobe of lung Qualified Code: J18.1 - Lobar pneumonia, unspecified organism Disposition: Home Referrals: Sabine Phelps PA-C (PCP) EDSupervising Provider for APC: Obed Jones MD Attending Statement This is a patient initially seen by the mid-level provider, but I personally interviewed and examined the patient, reviewed the laboratory, vitals, chart, and CT imaging obtained today. The patient was recently admitted with diverticulitis treated couple days of IV antibiottics and discharged on Augmentin. She has had diarrhea with the Augmentin, I have been doing okay but developed increasing fatigue the past few days, she also has a mild cough, she has not had any fevers or chills, and today had a little bit of abdominal pain. Overall abdominal pain is really not been part of her there are picture, she initially presented with fevers and chills or than pain and she is not on a pain medications. She clinically appears well, she is in no distress, vitals are normal she is not febrile. Her blood work was normal. CT with oral contrast was obtained to evaluate for the possibility of a diverticular abscess or microperforation-in the does reveal mild persistent diverticulitis, no inter-dish abdominal pathology is otherwise evident. The CT is suggestive of a small consolidation in the lung as well, the patient does have a mild cough. Augmentin should be adequate treatment as well. He did not have any diarrhea in the department for chest stool sample could be obtained as was ordered by the mid-level provider, however the patient's on Augmentin and diarrhea is to be expected. I reviewed options with the patient. The patient on reevaluation does not wish to be readmitted, nor did she appear toxic or have any red flags on her imaging or laboratory studies, it is still slightly concerning that there is persistent inflammation after a week of antibiotics, but it is not progressed or worsened and the patient's tolerating it well. I have gone ahead and written to explain the antibiotics slightly, and I recommend she continue her probiotics as well. Discussed the possibility of changing Antibiotics-however that would typically include a fluoroquinolone and metronidazole, patient's had problems with fluoroquinolones. Review, and so wishes to remain on the Augmentin-I think this is reasonable. Patient is discharged in good condition. Routine and return precautions reviewed. copies to: Sabine Phelps PA-C, Sue ARNP December 03, 2016 11:30 Obed Jones MD December 03, 2016 18:05
[2016-12-03] MEDS ORDERED: 0.9% Sodium Chloride 1,000 ML IV ONE (12:00)
[2016-12-03 12:01] VITALS: BP 153/71; O2SAT 92
[2016-12-03 12:09] LABS: BASOPHILS % (AUTO) 0.7 % (0-3); EOSINOPHILS % (AUTO) 0.7 % (0-5); MONOCYTES % (AUTO) 11.8 % (4-12); Mean Corpuscular Volume 90.3 fL (81-100); NEUTROPHILS % (AUTO) 68.6 % (40-74); Platelet Count 189 bil/L (150-400)
--- NOTE | 2016-12-03 12:31 | DRSVH ---
PROCEDURE: X-RAY CHEST, TWO VIEWS ([id number]) INDICATIONS: cough TECHNIQUE: 2 views of the chest were acquired. COMPARISON: [facility], CR, XR CHEST 2VW, 11/24/2016, 15:42. FINDINGS: Surgical changes and devices: None. Lungs and pleura: No pleural effusions or pneumothorax. Lungs are clear. Mediastinum: Mediastinal contours are normal. Heart size is normal. Bones and chest wall: No suspicious bony abnormalities. Soft tissues appear unremarkable. IMPRESSION: No acute process. Dictated by: Joey Lagunas M.D. on 12/03/2016 at 12:29 Approved by: Joey Lagunas M.D. on 12/03/2016 at 12:29
[2016-12-03 12:37] LABS: TROPONIN T 0.01 ug/L (0.0-0.011)
[2016-12-03 12:49] LABS: Magnesium 2.1 mg/dL (1.6-2.6)
[2016-12-03 13:05] VITALS: BP 158/72; PULSE 78; O2SAT 97
[2016-12-03 13:14] VITALS: BP 158/72; PULSE 87; RESP 18; O2SAT 97
[2016-12-03] MEDS ORDERED: Iohexol 300 mg/mL 30 mL Inj PO ONE (13:15)
--- NOTE | 2016-12-03 14:51 | DRSVH ---
PROCEDURE: CT ABDOMEN AND PELVIS WITH CONTRAST ([id number]) INDICATIONS: abd pain ?abscess, diverticulitis TECHNIQUE: After the administration of intravenous contrast, 5 mm thick sections acquired from the diaphragm to the symphysis. 5 mm coronal and sagittal reformats were acquired. For radiation dose reduction, the following was used: automated exposure control, adjustment of mA and/or kV according to patient hollie trimble. COMPARISON: [facility], CT, CT ABD PELVIS W CON, 11/24/2016, 15:57. FINDINGS: Image quality: Excellent. ABDOMEN: Lung bases: Mild patchy opacity within the right middle lobe. Heart size is normal. Solid organs: Liver and spleen are normal in size and enhancement. Gallbladder is within normal mag[place]on its. Biliary system is non dilated. Pancreas enhances normally. No adrenal nodules. Kidneys demon strate normal size and enhancement, without hydronephrosis. Peritoneum and bowel: No change in small hiatal hernia. Stomach and small bowel are within normal li mits. Appendix is normal. Colon is nondistended. Diverticulosis of the descending and sigmoid colon. Mild thickening of the distal descending colon and mild pericolonic fat stranding. Mild thickening of the mid/distal sigmoid colon with mild pericolonic fat stranding. No pericolonic abscess. No free fl uid or air. Nodes and vessels: No retroperitoneal or mesenteric adenopathy by size criteria. Aorta and inferior vena cava are normal in size. Miscellaneous: No ventral hernias. PELVIS: Genitourinary: Bladder wall thickness is normal. Miscellaneous: No inguinal hernias or adenopathy. Bones: No suspicious bony lesions. No vertebral body compression fractures. IMPRESSION: 1. Mild right middle lobe pneumonia. 2. Mild diverticulitis of the distal and mid sigmoid colon. 3. Normal appendix. 4. Small hiatal hernia. Dictated by: Joey Lagunas M.D. on 12/03/2016 at 14:45 Approved by: Joey Lagunas M.D. on 12/03/2016 at 14:49
[2016-12-03 15:17] LABS: APPEARANCE,URINE CLEAR (CLEAR,HAZY); COLOR,URINE YELLOW (YELLOW); OCCULT BLOOD,URINE TRACE (NEGATIVE); UROBILINOGEN,URINE NORMAL (NORMAL)
[2016-12-03] MEDS ORDERED: AMOX-366 PO (16:55)
== END 2016-12-03 17:30 | disposition home or self-care (01) ==
LOC: SED 10:30
DX: K57.32 Diverticulitis of large intestine without perforation or abscess without bleeding (principal); J18.1 Lobar pneumonia, unspecified organism; K21.9 Gastro-esophageal reflux disease without esophagitis; M19.90 Unspecified osteoarthritis, unspecified site; F41.9 Anxiety disorder, unspecified; I10 Essential (primary) hypertension; F32.9 Major depressive disorder, single episode, unspecified; Z88.4 Allergy status to anesthetic agent; Z88.1 Allergy status to other antibiotic agents; Z88.8 Allergy status to other drugs, medicaments and biological substances
CPT/HCPCS: 36415; 71020; 74177; 80053; 81000; 83605; 83735; 84484; 85025; 93005; 96360; 99285; J7030; Q9967

== ENCOUNTER → 2017-03-30 | Day surgery (SDC) | payer MEDICARE ==
[~2017-03-30] VITALS: Ht 154.9 cm; Wt 69.4 kg
[~2017-03-30] MED LIST changes: +0.9% Sodium Chloride 1,000 ML IV SCH; +ALPR0.254 PO; -AMOX-366 PO; -BIFI4CAP PO; -CLOB15CR3 TOP; -CYAN500 PO; +DICL75TA6 PO; -ESTR42.52 VG; -FAMO20TA41 PO; -LACT1CAP64 PO; +LACT1CAP73 PO; -NORE-3 PO; +Sodium Chloride LOK Flush 10 mL Syringe IV PRN; +fentaNYL-PF 50 mCg/mL 2 mL Inj IVPUSH PRN
[2017-03-30 08:06] VITALS: BP 171/94; PULSE 72; RESP 14; O2SAT 98
[2017-03-30 08:35] VITALS: BP 121/65; PULSE 61; RESP 16; O2SAT 93
[2017-03-30 08:45] VITALS: BP 115/62; PULSE 59; RESP 16; O2SAT 93
[2017-03-30 08:55] VITALS: BP 121/59; PULSE 66; RESP 16; O2SAT 98
--- NOTE | 2017-03-30 09:00 | ENDO ---
[address] [address] ENDOSCOPY PROCEDURE PATIENT: TIGIST MIRANDA : 1940 MR#: [id number] ADMIT: 03/30/2017 JOB ID: [id number] DATE: 03/30/2017 TYPE OF OPERATION: Colonoscopy. PREOPERATIVE DIAGNOSIS(ES): Guaiac positive stools. POSTOPERATIVE DIAGNOSIS(ES): 1. Severe sigmoid diverticulosis. 2. Small internal hemorrhoids. ANESTHESIA: 1. Fentanyl 125 mcg. 2. Versed 5 mg IV administered. COMPLICATION: None. BLOOD LOSS: Minimal. DESCRIPTION OF PROCEDURE: After the risks and benefits were explained to the patient, informed consent was obtained. After anesthesia administered, colonoscope was then inserted from the rectum to cecum. Mucosa carefully examined. Prep of the patient was excellent. After procedure was done, the scope withdrawn and procedure terminated. FINDINGS: Upon inspection of the anus, no masses, hemorrhoids, ulcers or fissures that were seen. Throughout the entire examination, there is extensive sigmoid diverticulosis. No polyps or masses were seen. Retroflexion showed small internal hemorrhoids. IMPRESSION: 1. Small internal hemorrhoids. 2. Severe sigmoid diverticulosis. RECOMMENDATIONS: 1. High-fiber diet. 2. Repeat colonoscopy in five years given history of tubular adenoma polyps.
[2017-03-30 09:05] VITALS: BP 121/69; PULSE 61; RESP 16; O2SAT 99
== END | disposition home or self-care (01) ==
LOC: END 00:34
PROVIDERS: ATTEND Internal Medicine Gastroenterology
DX: K57.30 Diverticulosis of large intestine without perforation or abscess without bleeding (principal); K64.8 Other hemorrhoids; R19.5 Other fecal abnormalities; K21.9 Gastro-esophageal reflux disease without esophagitis; M54.30 Sciatica, unspecified side; I10 Essential (primary) hypertension; E55.9 Vitamin D deficiency, unspecified; N95.2 Postmenopausal atrophic vaginitis; L30.9 Dermatitis, unspecified; F41.9 Anxiety disorder, unspecified; Z86.010 Personal history of colon polyps; Z79.899 Other long term (current) drug therapy
CPT/HCPCS: 45378; G0500; J2250; J3010; J7030